=== PATIENT | male | born 1950 | race Two or more races ===

== ENCOUNTER 2021-08-04 14:16 | Emergency (ER) | payer MEDICARE, OTHER ==
[~2021-08-04] VITALS: Ht 185.4 cm; Wt 120.5 kg
[~2021-08-04 14:16] MED LIST: AMIO200T61 PO; AMLO10TA PO; APIX5TAB3 PO; BUPR150T8 PO; LOSA1TAB41 PO; MULT-1085 PO; TEST200V33 IM; [UNRECOGNIZED DRUG - OTHER] TP
[2021-08-04 15:11] VITALS: BP 149/79
== END 2021-08-04 18:21 | disposition home or self-care (01) ==
LOC: ER 14:18
DX: J20.9 Acute bronchitis, unspecified (principal); Z20.822 Contact with and (suspected) exposure to COVID-19; I48.91 Unspecified atrial fibrillation; I10 Essential (primary) hypertension; Z79.899 Other long term (current) drug therapy
CPT/HCPCS: 87081; 87502; 87503; 87635; 87880; 99283; C9803